=== PATIENT | female | born 1980 | race Caucasian/White ===

== ENCOUNTER 2017-06-30 21:50 | Emergency (ER) | payer OTHER ==
[~2017-06-30] VITALS: Ht 170.1 cm; Wt 99.8 kg
[~2017-06-30 21:50] MED LIST: CIPROFLOXACIN500 MG PO; FLOMAX0.4 MG PO; METFORMIN500 MG PO; Metformin Hydr500 MG PO; PERCOCET 325 MG1 TA2 PO; PERCOCET 325 MG1 TA7 PO; PHENERGAN25 M1 PO; TRAMADOL HCL50 MG PO; VICODIN 500 MG-1 TAB PO; VICODIN ES 7501 TAB PO; ZOFRAN ODT4 MG SL; Zofran4 MG PO
== END 2017-06-30 22:07 | disposition home or self-care (01) ==
LOC: ED 21:50
DX: S61.217A Laceration without foreign body of left little finger without damage to nail, initial encounter (principal); W26.8XXA Contact with other sharp object(s), not elsewhere classified, initial encounter; Y93.89 Activity, other specified; Y92.89 Other specified places as the place of occurrence of the external cause; Y99.8 Other external cause status